=== PATIENT | female | born 1945 | race Caucasian/White ===

== ENCOUNTER 2016-05-25 18:24 | Observation (INO) | payer MEDICARE, OTHER ==
[2016-05-25 19:01] LABS: ABSOLUTE LYMPHOCYTES (AUTO) 1.9 10^3/uL (0.5-4.7); ABSOLUTE MONOCYTES (AUTO) 0.7 10^3/uL (0.1-1.4); ABSOLUTE NEUT (AUTO) 2.9 10^3/uL (1.7-8.2); BASOPHILS % (AUTO) 0.4 % (0-2); EOSINOPHILS % (AUTO) 0.8 % (0-6); HEMATOCRIT 36.1 % (36.0-47.0); HEMOGLOBIN 11.5 g/dL (12.0-15.5); HGB HCT DIFFERENCE -1.6; MEAN CORPUSCULAR HEMOGLOBIN 26.3 pg (27.0-33.4); MEAN CORPUSCULAR HGB CONC 31.8 g/dL (32.0-36.0); MEAN CORPUSCULAR VOLUME 83 fl (80-97); RED BLOOD COUNT 4.37 10^6/uL (3.72-5.28); RED CELL DISTRIBUTION WIDTH 16.2 % (11.5-14.0); SEGMENTED NEUTROPHILS % (AUTO) 51.8 % (42-78); WHITE BLOOD COUNT 5.6 10^3/uL (4.0-10.5)
[2016-05-25 19:15] LABS: ALANINE AMINOTRANSFERASE 23 U/L (9-52); ALBUMIN 3.8 g/dL (3.5-5.0); ALKALINE PHOSPHATASE 71 U/L (38-126); ANION GAP 12 (5-19); ASPARTATE AMINO TRANSFERASE 22 U/L (14-36); BILIRUBIN,DIRECT 0.2 mg/dL (0.0-0.4); BILIRUBIN,TOTAL 0.5 mg/dL (0.2-1.3); BLOOD UREA NITROGEN 14 mg/dL (7-20); CALCIUM 9.5 mg/dL (8.4-10.2); CARBON DIOXIDE 25 mmol/L (22-30); CHLORIDE 101 mmol/L (98-107); CREATININE RESULT 0.66 mg/dL (0.52-1.25); GLUCOSE 75 mg/dL (75-110); LIPASE 119.4 U/L (23-300); POTASSIUM 4.2 mmol/L (3.6-5.0); SODIUM 137.9 mmol/L (137-145); TOTAL PROTEIN 6.2 g/dL (6.3-8.2)
[2016-05-25 19:53] LABS: APPEARANCE,URINE CLEAR; BILIRUBIN,URINE NEGATIVE (NEGATIVE); GLUCOSE, URINE NEGATIVE (NEGATIVE); KETONES,URINE TRACE mg/dL (NEGATIVE); LEUKOCYTE ESTERASE,URINE NEGATIVE (NEGATIVE); NITRITE,URINE NEGATIVE (NEGATIVE); PROTEIN,URINE NEGATIVE (NEGATIVE); URINE SPECIFIC GRAVITY 1.002; UROBILINOGEN,URINE NEGATIVE mg/dL (<2.0)
[2016-05-25] MEDS ORDERED: ONDANSETRON HCL INJ/PF 4 MG/2 ML SDV IV ONE (20:08)
[2016-05-26] MEDS ORDERED: MORPHINE SULFATE 10 MG/ML INJ IV ONE (00:18)
[2016-05-26] MEDS ORDERED: MORPHINE SULFATE 10 MG/ML INJ ONE (00:22)
--- NOTE | 2016-05-26 00:37 | ER Document Report ---
ED General <SADIQ FREEMAN - Last Filed: 05/26/16 04:06> - General Mode of Arrival: Ambulatory Information source: Patient <JACKSON ALLEN - Last Filed: 05/27/16 01:28> - General Chief Complaint: Abdominal Pain >50 Stated Complaint: ABDOMINAL PAIN Notes: This is a 70-year-old female who presents to the ER for evaluation of 2-3 days of intermittent abdominal cramping. She has had nausea but no vomiting. No fevers or chills. No dysuria. She has tolerated crackers and grits today. She states the pain is worse on the left side and reminds her of her prior pancreatitis. (JACKSON ALLEN) - Related Data Allergies/Adverse Reactions: No Known Allergies Allergy (Unverified 05/26/16 01:11) Home Medications: Current Home Medications Acyclovir [Zovirax 200 mg Capsule] 200 mg PO BIDP PRN 05/26/16 [History] Acyclovir [Zovirax 200 mg Capsule] 200 mg PO Q2D@2200 05/26/16 [History] Amitriptyline HCl [Elavil 25 mg Tablet] 12.5 mg PO WSUPPER 05/26/16 [History] Aspirin [Aspirin EC] 81 mg PO DAILY 05/26/16 [History] Azelaic Acid [Finacea] 1 applic TP BIDP PRN 05/26/16 [History] Benzonatate [Tessalon Perle 100 mg Capsule] 100 mg PO DAILYP PRN 05/26/16 [ History] Butalb/Acetaminophen/Caffeine [Zebutal 50-325-40 mg Capsule] 1 cap PO BIDBL 06/08 [History] Calcium Carbonate/Vitamin D3 [Calcium 500 + Vit D Caplet] 2 each PO WSUPPER 06/08 [History] Carboxymethylcellulose Sodium [Refresh Tears] 1 drop OU BID 05/26/16 [History] Chlorhexidine Gluconate [Peridex] 15 ml MM DAILYP PRN 05/26/16 [History] Cholecalciferol (Vitamin D3) [Vitamin D] 50,000 unit PO CANELA@1000 05/26/16 [ History] Ciprofloxacin HCl/Dexameth [Ciprodex Otic Suspension 7.5 ml Bottle] 1 drop AU BID 05/26/16 [History] Cyanocobalamin (Vitamin B-12) [Vitamin B-12 100 mcg Tablet] 100 mcg PO WLUNCH [History] Diclofenac Sodium [Voltaren] 1 applic TP BIDP PRN 05/26/16 [History] Docusate Sodium [Colace 100 mg Capsule] 100 mg PO BID 05/26/16 [History] Emollient Base [Vanicream] 1 applic TP BIDP PRN 05/26/16 [History] Esomeprazole Magnesium [Nexium] 40 mg PO BIDBS 05/26/16 [History] Fluticasone Propionate [Flonase Nasal [place] 50 Mcg/[place] 16 gm] 2 sprays NASL Q12 05/26/16 [History] Folic Acid [Folvite 1 mg Tablet] 1 mg PO DAILY 05/26/16 [History] Gabapentin [Neurontin 300 mg Capsule] 300 mg PO QPM 05/26/16 [History] Gabapentin [Neurontin] 600 mg PO Q8 05/26/16 [History] Hydrocodone/Acetaminophen [[place] 7.5-325 mg Tablet] 1 tab PO DAILYP PRN [History] Magnesium Oxide [Mag-Ox 400 mg Tablet] 400 mg PO DAILY 05/26/16 [History] Meclizine HCl [Antivert 25 mg Tablet] 25 mg PO Q6HP PRN 05/26/16 [History] Methocarbamol [Robaxin 750 mg Tablet] 750 mg PO QHS 05/26/16 [History] Metoclopramide HCl [Reglan] 2.5 mg PO Q2D@2200 05/26/16 [History] Montelukast Sodium [Singulair 10 mg Tablet] 10 mg PO QHS 05/26/16 [History] Nitroglycerin [Nitrostat] 0.4 mg SL Q5MP PRN 05/26/16 [History] [place]-3/Dha/Epa/Fish Oil [Fish Oil 1,000 mg Softgel] 1 each PO QHS 05/26/16 [ History] Ondansetron HCl [Zofran 8 mg Tablet] 4 mg PO Q6HP PRN 05/26/16 [History] Potassium Chloride [Klor-Con 10 Meq Tablet.sa] 20 meq PO DAILY 05/26/16 [History ] Pravastatin Sodium [Pravachol] 20 mg PO QHS 05/26/16 [History] Prednisone 4 mg PO WSUPPER 05/26/16 [History] Prednisone 5 mg PO WLUNCH 05/26/16 [History] Prednisone 10 mg PO QAM 05/26/16 [History] Promethazine HCl [Phenergan 25 mg Tablet] 25 mg PO Q6HP PRN 05/26/16 [History] Pyridoxine HCl [Vitamin B-6 Tablet 50 mg] 25 mg PO DAILY 05/26/16 [History] Sodium Chloride [Anne-128 Oph Soln 5% 15 ml] 1 drop OU BID 05/26/16 [History] Tramadol HCl [Ultram 50 mg Tablet] 50 mg PO Q6 05/26/16 [History] Vitamin B Complex [B Complex] 1 each PO WLUNCH 05/26/16 [History] Vitamin E (Dl, Acetate) [Vitamin E 400 Unit Capsule] 400 unit PO Q2D@2200 [History] Zinc 50 mg PO WSUPPER 05/26/16 [History] Past Medical History - General Information source: Patient, [facility] - Social History Smoking Status: Unknown if Ever Smoked Family History: Reviewed & Not Pertinent - Past Medical History Cardiac Medical History: Reports: Hx Hypercholesterolemia, Hx Hypertension Pulmonary Medical History: Reports: Other - Sarcoidosis Endocrine Medical History: Reports: Hx Diabetes Mellitus Type 2 GI Medical History: Reports: Hx Gastroesophageal Reflux Disease Musculoskeltal Medical History: Reports Hx Arthritis, Reports Hx Fibromyalgia Past Surgical History: Reports: Hx Bowel Surgery, Hx Orthopedic Surgery - back <JACKSON ALLEN - Last Filed: 05/27/16 01:28> Review of Systems <SADIQ FREEMAN - Last Filed: 05/26/16 04:06> <JACKSON ALLEN - Last Filed: 05/27/16 01:28> - Review of Systems Notes: REVIEW OF SYSTEMS: CONSTITUTIONAL : Denies fever, chills, or sweats. Denies recent illness. EENT: Denies eye, ear, throat, or mouth pain or symptoms. Denies nasal or sinus congestion. CARDIOVASCULAR: Denies chest pain. RESPIRATORY: Denies cough, cold, or chest congestion. Denies shortness of breath, difficulty breathing, or wheezing. GASTROINTESTINAL: As per history of present illness: GENITOURINARY: Denies difficulty urinating, painful urination, burning, frequency, or blood in urine. MUSCULOSKELETAL: Denies neck or back pain or joint pain or swelling. SKIN: Denies rash or skin lesions. HEMATOLOGIC : Denies easy bruising or bleeding. LYMPHATIC: Denies swollen, enlarged glands. NEUROLOGICAL: Denies altered mental status or loss of consciousness. Denies headache. PSYCHIATRIC: Denies anxiety or stress or depression. ALL OTHER SYSTEMS REVIEWED AND NEGATIVE. (JACKSON ALLEN) Physical Exam <SADIQ FREEMAN - Last Filed: 05/26/16 04:06> <JACKSON ALLEN - Last Filed: 05/27/16 01:28> - Vital signs Vitals: Temp Pulse Resp BP Pulse Ox 98.1 F 63 16 136/60 H 96 05/25/16 18:45 05/25/16 18:45 05/25/16 18:45 05/25/16 18:45 05/25/16 18:45 - Notes Notes: PHYSICAL EXAMINATION: GENERAL: Well-appearing, well-nourished and in no acute distress. Pleasant and conversant with slightly anxious affect HEAD: Atraumatic, normocephalic. EYES: Pupils equal round and reactive to light, extraocular movements intact, sclera anicteric, conjunctiva are normal. ENT: nares patent, oropharynx clear without exudates. Moist mucous membranes. NECK: Normal range of motion, supple without lymphadenopathy LUNGS: Breath sounds clear to auscultation bilaterally and equal. No wheezes rales or rhonchi. HEART: Regular rate and rhythm without murmurs ABDOMEN: Soft, mild lower abdominal tenderness to palpation without peritonitis, , normoactive bowel sounds. Left lower quadrant colostomy is intact. No guarding, no rebound. No masses appreciated. EXTREMITIES: Normal range of motion, no pitting or edema. No cyanosis. NEUROLOGICAL: Cranial nerves grossly intact. Normal speech. No gross focal motor sensory deficits appreciated PSYCH: Normal mood, anxious affect SKIN: Warm, Dry, normal turgor, no rashes or lesions noted. (JACKSON ALLEN) Course - Laboratory Result Diagrams: 05/25/16 18:42 05/25/16 18:42 <SADIQ FREEMAN - Last Filed: 05/26/16 04:06> - Laboratory Result Diagrams: 05/25/16 18:42 05/25/16 18:42 - Diagnostic Test Radiology reviewed: Reports reviewed - CT abd/pelvis: no acute process <JACKSON ALLEN - Last Filed: 05/27/16 01:28> - Re-evaluation Re-evalutation: 05/26/16 00:36 Patient with continued benign abdominal exam. No peritonitis and no evidence of surgical abdomen. Labs reviewed and are reassuring. CT of the abdomen and pelvis with IV contrast shows no acute abnormality. Patient is appropriate for discharge and outpatient management. She will follow up closely with her primary care physician. Strict return precautions were discussed and she is comfortable with this plan. 05/26/16 01:53 Of note, pt was in process of discharge and was feeling well. When she stood to put her pants on, she states she had a very sharp pain in her mid back all of a sudden. No shortness of breath, no nausea, no diaphoresis. At times in the past when she has had this sharp back pain, she would take a ntg given the fact that she has been diagnosed with prinzemetals spasms. So, without notifying nursing staff, she took one of her SL NTG. She then felt dizzy and nauseated and had to lay down Patient had good response her blood pressure with lying down liter of IV fluids. She states that she feels fine and she really wants to go home. I believe her hypotension was secondary to the nitroglycerin. She is having no chest pain or shortness of breath now. She'll be discharged. Upon nursing assessment discharge it was noted the patient's room air sats have dropped to the high 60s to low 70s with a good waveform. Patient is awake and talking however she appears somewhat sleepy. Her respirations are slow at 8. She adamantly denies taking any medication other than the nitroglycerin specifically she denies taking any pain medications however her clinical presentation suggests possible opiates. A dose of Narcan was given to which she initially had good response. However 20 minutes later she had a second episode of descending to 83% on room air. Cardiac enzymes as well as urine drug screen and chest x-ray have been ordered. I discussed the case with the hospitalist Dr. Gonzalez for admission for continued workup and chest pain rule out. At this time Dr. Gonzalez recommends CT angiogram or VQ scan and ABG prior to consideration for admission. At 0245 care was transferred to Dr. Freeman with anticipation of admission to hospitalist for VQ scan. (JACKSON ALLEN) - Vital Signs Vital signs: Temp Pulse Resp BP Pulse Ox 99.4 F 82 19 162/87 H 93 05/26/16 20:44 05/26/16 20:44 05/26/16 20:44 05/26/16 20:44 05/26/16 20:44 - Laboratory Laboratory results interpreted by me: 05/25/16 05/25/16 05/25/16 17:36 18:42 18:42 Hgb 11.5 L MCH 26.3 L MCHC 31.8 L RDW 16.2 H ABG pO2 ABG O2 Saturation Total Protein 6.2 L Urine Ketones TRACE H 05/26/16 03:30 Hgb MCH MCHC RDW ABG pO2 68.6 L ABG O2 Saturation 93.7 L Total Protein Urine Ketones Discharge - Discharge Admitting Provider: Hospitalist Unit Admitted: Telemetry <SADIQ FREEMAN - Last Filed: 05/26/16 04:06> - Discharge Admitting Provider: Hospitalist Unit Admitted: Telemetry - Dr Gonzalez <JACKSON ALLEN - Last Filed: 05/27/16 01:28> - Discharge Clinical Impression: Abdominal pain in female patient, Hypoxia Chest pain Qualifiers: Chest pain type: unspecified Qualified Code(s): R07.9 - Chest pain, unspecified Condition: Stable Disposition: ADMITTED OBSERVATION
[2016-05-26] MEDS ORDERED: NORMAL SALINE 1000 ML 1,000 ML IV ONE ×2 (01:11→01:12)
[2016-05-26] MEDS ORDERED: NALOXONE HCL INJ/PF 0.4 MG/1 ML SDV IV ONE (02:11)
[2016-05-26 03:12] LABS: CREATINE KINASE MB 0.65 ng/mL (<4.55)
[2016-05-26 03:16] LABS: URINE BARBITURATES SCREEN UNCONFIRMED POSITIVE; URINE METHADONE SCREEN NEGATIVE; URINE OPIATES LOW UNCONFIRMED POSITIVE; URINE PHENCYCLIDINE SCREEN NEGATIVE
[2016-05-26 03:16] LABS: TROPONIN I < 0.012 ng/mL
[2016-05-26] MEDS ORDERED: ONDANSETRON HCL INJ/PF 4 MG/2 ML SDV IV ONE (03:42)
[2016-05-26 04:02] LABS: ARTERIAL BLOOD BASE EXCESS -2.9 mmol/L; ARTERIAL BLOOD O2 SATURATION 93.7 % (94-98)
[2016-05-26] MEDS ORDERED: CALCIUM CARBONATE 500 MG TABLET PO PRN (06:28)
--- NOTE | 2016-05-26 07:12 | ER Document Report ---
Doctor's Note Notes: 05/26/16 07:11 Asked to review an EKG. Patient sinus rhythm at [address] bpm [address] no acute ST segment elevation or depression
[2016-05-26 07:49] LABS: CREATINE KINASE MB 0.96 ng/mL (<4.55); TROPONIN I < 0.012 ng/mL
[2016-05-26] MEDS ORDERED: DIPHENHYDRAMINE HCL 50 MG/ML VIAL IV PRN (09:24)
--- NOTE | 2016-05-26 10:06 | Physician Advisory Note ---
Physician Advisor ProgressNote .: [facility] I have reviewed the medical record for this patient. Physician Advisor Statement: Possible documentation opportunities if attending agrees: 1. "Acute Hypoxemic Resp Failure w/bradypnea as low as 4/sedation & hypoxemia as low as 70% on RA" 2. ? - "Chronic nutritional Fe defic anemia" - or chronic blood loss type? or ... 3. ?- "possible adverse effect of ____ [Rx] causing " As always, if concerned about any unstable VS or abnormal labs, please comment on them & note what doing about them, & please document each day the potential clinical problems you are concerned could occur if pt not kept in hospital for tx at this time. Discussion: 70yo female w/ chronic co-morbidities including DM-2, HTN, pancreatitis, sarcoidosis, fibromyalgia, chronic back pain, Printzmetal's angina, LLQ colostomy due to (H&P is in progress at time of this review, so further details may be found there) - presented 4/3 PM to ED w/LUQ cramping pain & nausea (+) HR 63, RR 16, BP 136/60, Hgb 11.5, RDW 16.2, WBC WNL, CT=no acute findings, U/A = tr ket, Then sudden sharp pain mid-back & took own pill for it ("SL NTG"), became dizzy/ nauseated, BP 75/46, then sleepy w/RR8, sats 60s-70s on RA, with recurrent hypoxemia to 83% RA 20min after Narcan. ED gave morphine 2mg at 00:22, Narcan @ 02:11, 2L NS. UDS (+) opiates, barbit. RR as low as 4, freq.ly 8-11 over several hrs in association w/low sats. V/Q neg. CXR neg. Attending ordered Solumedrol IV q8h, Benadryl IV prn, Zofran IV prn, orthostatics, GI consult, serial cardiac enzymes, EKG. Status: Approp to start as Obs. If pt doesn't improve by tomorrow AM enough to be stable for d/c, please document ongoing concerns/clinical issues making tx/ monitoring in inpatient hospital setting medically reasonable & necessary to protect pt's health, safety, & medical condition. Thanks for your help with documentation accuracy/specificity improvement! Marilee Champion MD [facility] Physician Advisor, Fellow of [facility]
[2016-05-26] MEDS ORDERED: NORMAL SALINE 1000 ML 1,000 ML IV PRN (10:36)
[2016-05-26] MEDS: ONDANSETRON HCL INJ/PF 4 MG/2 ML SDV IV PRN ×2 (10:40→18:03)
[2016-05-26] MEDS ORDERED: MORPHINE SULFATE 10 MG/ML INJ IV PRN (11:08)
[2016-05-26] MEDS: CALCIUM CARBONATE 500 MG TAB.CHEW PO SCH ×4 (11:13→22:17)
[2016-05-26] MEDS ORDERED: METHYLPREDNISOLONE INJ 40 MG/1 ML SDV IV ONE (11:15)
[2016-05-26] MEDS: PROMETHAZINE HCL 25 MG SUPP.RECT PR PRN ×2 (12:01→18:17)
--- NOTE | 2016-05-26 13:12 | EKG REPORT ---
SEVERITY:- ABNORMAL ECG - SINUS RHYTHM LEFT VENTRICULAR HYPERTROPHY : Confirmed by: Carmen Powell MD 26-May-2016 13:12:31
--- NOTE | 2016-05-26 13:13 | EKG REPORT ---
SEVERITY:- ABNORMAL ECG - SINUS RHYTHM LEFT VENTRICULAR HYPERTROPHY : Confirmed by: Carmen Powell MD 26-May-2016 13:12:37
--- NOTE | 2016-05-26 13:36 | PDOC PROGRESS REPORT ---
Subjective Progress Note for:: 05/26/16 Subjective:: Complains of left upper quadrant abdominal pain. Patient also has had nausea and vomiting. Physical Exam Vital Signs: Temp Pulse Resp BP Pulse Ox 97.4 F 80 20 142/85 H 99 05/26/16 11:46 05/26/16 11:46 05/26/16 11:46 05/26/16 11:46 05/26/16 11:46 General appearance: PRESENT: no acute distress Eye exam: PRESENT: conjunctiva pink. ABSENT: scleral icterus Mouth exam: PRESENT: dry mucosa Neck exam: ABSENT: JVD Respiratory exam: PRESENT: clear to auscultation jose. ABSENT: rales, rhonchi, wheezes Cardiovascular exam: PRESENT: RRR. ABSENT: diastolic murmur, rubs, systolic murmur GI/Abdominal exam: PRESENT: normal bowel sounds, soft, tenderness - Left quadrant tenderness. No guarding or rebound., other - Colostomy in place. ABSENT: distended, guarding, mass, organolmegaly, rebound Extremities exam: ABSENT: calf tenderness, clubbing, pedal edema Neurological exam: PRESENT: alert, awake, oriented to person, oriented to place , oriented to time, oriented to situation, CN II-XII grossly intact. ABSENT: motor sensory deficit Psychiatric exam: PRESENT: appropriate affect Skin exam: PRESENT: dry, intact, warm. ABSENT: cyanosis, rash Results Impressions: Abdomen/Pelvis CT 05/25/16 19:54 IMPRESSION: No acute process. Left lower quadrant ostomy. Small ventral hernia containing nonobstructed bowel. Chest X-Ray 05/26/16 02:11 IMPRESSION: NO ACUTE RADIOGRAPHIC FINDING IN THE CHEST. Extensive calcified nodes. Lung Scan-VQ ND 05/26/16 02:41 IMPRESSION: NORMAL VENTILATION-PERFUSION LUNG SCAN. NEGATIVE FOR PULMONARY EMBOLI. Assessment & Plan - Diagnosis (1) Abdominal pain in female patient Is this a current diagnosis for this admission?: YesPlan: The cause of her abdominal pain is unclear. She has a history of pancreatitis as well as a history of diverticulitis. Her lipase is normal and does not have pancreatitis. We'll consult GI for evaluation. (2) Diabetes mellitus Is this a current diagnosis for this admission?: YesPlan: We'll cover with sliding scale insulin. (3) Fibromyalgia Is this a current diagnosis for this admission?: Yes (4) Prinzmetal's angina Is this a current diagnosis for this admission?: YesPlan: The patient took a nitroglycerin in the emergency room because of chest pain and became hypotensive. (5) Hyperlipidemia Is this a current diagnosis for this admission?: Yes (6) Sarcoidosis Is this a current diagnosis for this admission?: Yes (7) Hypertension Is this a current diagnosis for this admission?: Yes (8) Chest pain Qualifiers: Chest pain type: unspecified Qualified Code(s): R07.9 - Chest pain, unspecified Is this a current diagnosis for this admission?: YesPlan: Most likely secondary to Prinzmetal's angina. She is followed by [facility] cardiology, Dr. Matos (9) Hypoxia Is this a current diagnosis for this admission?: YesPlan: The etiology of the hypoxia is unclear. She had this after she took a nitroglycerin and became hypotensive. She's no longer hypoxic and her VQ scan was unremarkable. - Time Time Spent with patient: 35 or more minutes - Inpatient Certification Medical Necessity: Need Close Monitoring Due to Risk of Patient Decompensation
[2016-05-26] MEDS ORDERED: BENZONATATE 100 MG CAPSULE PO PRN (13:37)
[2016-05-26] MEDS ORDERED: PYRIDOXINE HCL 50 MG TABLET PO PRN (13:37)
[2016-05-26 13:56] LABS: CREATINE KINASE MB 1.3 ng/mL (<4.55); TROPONIN I 0.014 ng/mL
[2016-05-26] MEDS: LORAZEPAM INJ 2 MG/1 ML VIAL IV PRN ×2 (14:18→22:12)
[2016-05-26] MEDS: DEXTROSE 5%-1/2 NORMAL SALINE 1,000 ML IV PRN ×2 (15:23→22:15)
[2016-05-26] MEDS ORDERED: PROMETHAZINE HCL INJ 25 MG/1 ML VIAL ONE (15:39)
[2016-05-26] MEDS ORDERED: MIDAZOLAM 2 MG/2 ML INJ ONE (15:39)
[2016-05-26] MEDS ORDERED: NALOXONE HCL INJ/PF 0.4 MG/1 ML SDV ONE (15:39)
[2016-05-26] MEDS ORDERED: GLUCAGON,HUMAN RECOMB 1 MG INJ ONE (15:40)
[2016-05-26] MEDS ORDERED: FENTANYL CITRATE INJ/PF 100 MCG/2 ML AMPUL ONE (15:40)
[2016-05-26] MEDS ORDERED: FLUMAZENIL INJ 0.5 MG/5 ML VIAL IV ONE (15:40)
[2016-05-26] MEDS ORDERED: EPINEPHRINE INJ 1 MG/10 ML DISP.SYRIN ONE (15:40)
--- NOTE | 2016-05-26 16:21 | PDOC H&P ---
History of Present Illness Admission Date/PCP: 05/26/16 10:25 Patient complains of: Abdominal pain History of Present Illness: CHUY SYKES is a 70 year old female who has a history of pancreatitis thought to be secondary to metformin who presented with left upper quadrant abdominal pain. She presented to the emergency room and her lipase was normal. She was going to be discharged home but then began to have some chest discomfort for which she took a nitroglycerin and then she became hypotensive. Patient after that then developed some hypoxia. She was given Narcan and normalization of her saturations as well as her blood pressure. Because of the chest discomfort she underwent a VQ scan which was normal. The patient has a history of Prinzmetal angina by her report. The patient reports that her pain in the left upper quadrant does not radiate. She's had difficulty tolerating by mouth for the last 2 days. She does use prednisone chronically and has not had her dose either today or yesterday. Denies any hematemesis. Denies any melena or bright red blood per rectum. Past Medical History Cardiac Medical History: Reports: Hyperlipidema, Hypertension Pulmonary Medical History: Reports: Other - Sarcoidosis Endocrine Medical History: Reports: Diabetes Mellitus Type 2 GI Medical History: Reports: Diverticulitis - Requiring partial colectomy, Gastroesophageal Reflux Disease Musculoskeltal Medical History: Reports: Arthritis, Fibromyalgia Psychiatric Medical History: Denies: Depression - MED FOR FIBROMYALGIA Hematology: Reports: None Past Surgical History Past Surgical History: Reports: Colostomy - Secondary to ruptured diverticulum, Orthopedic Surgery - back Social History Information Source: Patient Smoking Status: Never Smoker Frequency of Alcohol Use: None Hx Recreational Drug Use: Yes Drugs: None Hx Prescription Drug Abuse: No - Advance Directive Resuscitation Status: Full Code Family History Family History: Mother at age 82. She had diabetes, coronary artery disease, CVA and cancer. Father at age 84 with MS Parental Family History Reviewed: Yes Children Family History Reviewed: No Sibling(s) Family History Reviewed.: No Medication/Allergy Home Medications: Acyclovir [Zovirax 200 mg Capsule] 200 mg PO BIDP PRN 05/26/16 Acyclovir [Zovirax 200 mg Capsule] 200 mg PO Q2D@2200 05/26/16 Amitriptyline HCl [Elavil 25 mg Tablet] 12.5 mg PO WSUPPER 05/26/16 Aspirin [Aspirin EC] 81 mg PO DAILY 05/26/16 Azelaic Acid [Finacea] 1 applic TP BIDP PRN 05/26/16 Benzonatate [Tessalon Perle 100 mg Capsule] 100 mg PO DAILYP PRN 05/26/16 Butalb/Acetaminophen/Caffeine [Zebutal 50-325-40 mg Capsule] 1 cap PO BIDBL 06/08 Calcium Carbonate/Vitamin D3 [Calcium 500 + Vit D Caplet] 2 each PO WSUPPER 06/08 Carboxymethylcellulose Sodium [Refresh Tears] 1 drop OU BID 05/26/16 Chlorhexidine Gluconate [Peridex] 15 ml MM DAILYP PRN 05/26/16 Cholecalciferol (Vitamin D3) [Vitamin D] 50,000 unit PO CANELA@1000 05/26/16 Ciprofloxacin HCl/Dexameth [Ciprodex Otic Suspension 7.5 ml Bottle] 1 drop AU BID 05/26/16 Cyanocobalamin (Vitamin B-12) [Vitamin B-12 100 mcg Tablet] 100 mcg PO WLUNCH Diclofenac Sodium [Voltaren] 1 applic TP BIDP PRN 05/26/16 Docusate Sodium [Colace 100 mg Capsule] 100 mg PO BID 05/26/16 Emollient Base [Vanicream] 1 applic TP BIDP PRN 05/26/16 Esomeprazole Magnesium [Nexium] 40 mg PO BIDBS 05/26/16 Fluticasone Propionate [Flonase Nasal [place] 50 Mcg/[place] 16 gm] 2 sprays NASL Q12 05/26/16 Folic Acid [Folvite 1 mg Tablet] 1 mg PO DAILY 05/26/16 Gabapentin [Neurontin 300 mg Capsule] 300 mg PO QPM 05/26/16 Gabapentin [Neurontin] 600 mg PO Q8 05/26/16 Hydrocodone/Acetaminophen [[place] 7.5-325 mg Tablet] 1 tab PO DAILYP PRN Magnesium Oxide [Mag-Ox 400 mg Tablet] 400 mg PO DAILY 05/26/16 Meclizine HCl [Antivert 25 mg Tablet] 25 mg PO Q6HP PRN 05/26/16 Methocarbamol [Robaxin 750 mg Tablet] 750 mg PO QHS 05/26/16 Metoclopramide HCl [Reglan] 2.5 mg PO Q2D@2200 05/26/16 Montelukast Sodium [Singulair 10 mg Tablet] 10 mg PO QHS 05/26/16 Nitroglycerin [Nitrostat] 0.4 mg SL Q5MP PRN 05/26/16 [place]-3/Dha/Epa/Fish Oil [Fish Oil 1,000 mg Softgel] 1 each PO QHS 05/26/16 Ondansetron HCl [Zofran 8 mg Tablet] 4 mg PO Q6HP PRN 05/26/16 Potassium Chloride [Klor-Con 10 Meq Tablet.sa] 20 meq PO DAILY 05/26/16 Pravastatin Sodium [Pravachol] 20 mg PO QHS 05/26/16 Prednisone 4 mg PO WSUPPER 05/26/16 Prednisone 5 mg PO WLUNCH 05/26/16 Prednisone 10 mg PO QAM 05/26/16 Promethazine HCl [Phenergan 25 mg Tablet] 25 mg PO Q6HP PRN 05/26/16 Pyridoxine HCl [Vitamin B-6 Tablet 50 mg] 25 mg PO DAILY 05/26/16 Sodium Chloride [Anne-128 Oph Soln 5% 15 ml] 1 drop OU BID 05/26/16 Tramadol HCl [Ultram 50 mg Tablet] 50 mg PO Q6 05/26/16 Vitamin B Complex [B Complex] 1 each PO WLUNCH 05/26/16 Vitamin E (Dl, Acetate) [Vitamin E 400 Unit Capsule] 400 unit PO Q2D@2200 Zinc 50 mg PO WSUPPER 05/26/16 Allergies/Adverse Reactions: No Known Allergies Allergy (Unverified 05/26/16 01:11) Review of Systems Constitutional: PRESENT: chills. ABSENT: night sweats Eyes: ABSENT: visual disturbances Ears: ABSENT: hearing changes Cardiovascular: PRESENT: chest pain - Emergency room. She has a history of Prinzmetal angina. She took nitroglycerin with relief.. ABSENT: dyspnea on exertion, edema, orthropnea, palpitations Respiratory: ABSENT: cough, dyspnea Gastrointestinal: PRESENT: as per HPI Genitourinary: ABSENT: dysuria, hematuria Musculoskeletal: PRESENT: other - Generalized pain secondary to fibromyalgia Integumentary: ABSENT: rash, wounds Neurological: ABSENT: abnormal gait, abnormal speech, confusion, dizziness, focal weakness, syncope Endocrine: ABSENT: cold intolerance, heat intolerance, polydipsia, polyuria Hematologic/Lymphatic: ABSENT: easy bleeding, easy bruising Physical Exam Vital Signs: Temp Pulse Resp BP Pulse Ox 97.4 F 80 20 142/85 H 99 05/26/16 11:46 05/26/16 11:46 05/26/16 11:46 05/26/16 11:46 05/26/16 11:46 General appearance: PRESENT: no acute distress, well-developed, well-nourished Head exam: PRESENT: atraumatic, normocephalic Eye exam: PRESENT: conjunctiva pink, EOMI, PERRLA. ABSENT: scleral icterus Mouth exam: PRESENT: dry mucosa Neck exam: ABSENT: carotid bruit, JVD, lymphadenopathy, thyromegaly Respiratory exam: PRESENT: clear to auscultation jose. ABSENT: rales, rhonchi, wheezes Cardiovascular exam: PRESENT: RRR. ABSENT: diastolic murmur, rubs, systolic murmur GI/Abdominal exam: PRESENT: normal bowel sounds, soft, tenderness - Left upper quadrant tenderness. Colostomy present in the lower abdomen. ABSENT: distended , guarding, mass, organolmegaly, rebound Extremities exam: ABSENT: calf tenderness, clubbing, pedal edema Neurological exam: PRESENT: alert, awake, oriented to person, oriented to place , oriented to time, oriented to situation, CN II-XII grossly intact. ABSENT: motor sensory deficit Psychiatric exam: PRESENT: anxious Skin exam: PRESENT: dry, intact, warm. ABSENT: cyanosis, rash Results Laboratory Results: 05/26/16 05/26/16 13:14 13:14 Creatine Kinase 81 CK-MB (CK-2) 1.30 Troponin I 0.014 Impressions: Abdomen/Pelvis CT 05/25/16 19:54 IMPRESSION: No acute process. Left lower quadrant ostomy. Small ventral hernia containing nonobstructed bowel. Chest X-Ray 05/26/16 02:11 IMPRESSION: NO ACUTE RADIOGRAPHIC FINDING IN THE CHEST. Extensive calcified nodes. Lung Scan-VQ NM 05/26/16 02:41 IMPRESSION: NORMAL VENTILATION-PERFUSION LUNG SCAN. NEGATIVE FOR PULMONARY EMBOLI. Assessment & Plan - Diagnosis (1) Abdominal pain in female patient Is this a current diagnosis for this admission?: YesPlan: The cause of her abdominal pain is unclear. She has a history of pancreatitis as well as a history of diverticulitis. Her lipase is normal and does not have pancreatitis. We'll consult GI for evaluation. (2) Diabetes mellitus Is this a current diagnosis for this admission?: YesPlan: We'll cover with sliding scale insulin. (3) Fibromyalgia Is this a current diagnosis for this admission?: Yes (4) Prinzmetal's angina Is this a current diagnosis for this admission?: YesPlan: The patient took a nitroglycerin in the emergency room because of chest pain and became hypotensive. (5) Hyperlipidemia Is this a current diagnosis for this admission?: Yes (6) Sarcoidosis Is this a current diagnosis for this admission?: YesPlan: Patient has been on prednisone daily. I have assured the patient that she would benefit from Solu-Medrol given that she did not have a dose of prednisone yesterday or today but she does not want to take it. (7) Hypertension Is this a current diagnosis for this admission?: YesPlan: The patient's blood pressure dropped low in the emergency room after nitroglycerin but improved after getting some Narcan. Patient will give IV fluids (8) Chest pain Qualifiers: Chest pain type: unspecified Qualified Code(s): R07.9 - Chest pain, unspecified Is this a current diagnosis for this admission?: YesPlan: Unclear whether this is related to her Prinzmetal angina or this could be referred from her abdomen. (9) Hypoxia Is this a current diagnosis for this admission?: YesPlan: The etiology of the hypoxia is unclear. She had this after she took a nitroglycerin and became hypotensive. She's no longer hypoxic and her VQ scan was unremarkable. - Time Time Spent: 50 to 70 Minutes - Plan Summary Plan Summary: Patient will be admitted as an observation.
[2016-05-26] MEDS ORDERED: AMITRIPTYLINE HCL 25 MG TABLET PO SCH (17:00)
[2016-05-26] MEDS ORDERED: EMOLLIENT BASE TP PRN (17:26)
[2016-05-26] MEDS ORDERED: HYDROCODONE/ACETAMINOPHEN 7.5-325 MG TABLET PO PRN (17:26)
[2016-05-26] MEDS ORDERED: (PENDING PHARMACY ID) (Diclofenac Sodium [Voltaren] 1 APPLIC) TP PRN (17:26)
[2016-05-26] MEDS ORDERED: AZELAIC ACID TP PRN (17:26)
[2016-05-26] MEDS ORDERED: ONDANSETRON HCL 8 MG TABLET PO PRN (17:26)
[2016-05-26] MEDS: METHYLPREDNISOLONE INJ 40 MG/1 ML SDV IV SCH ×2 (17:58→22:17)
[2016-05-26] MEDS ORDERED: (PENDING PHARMACY ID) (Carboxymethylcellulose Sodium [Refresh Tears] 1 DROP) OU SCH (18:00)
[2016-05-26] MEDS ORDERED: ONDANSETRON 4 MG TAB.RAPDIS PO PRN (19:04)
--- NOTE | 2016-05-26 19:12 | PDOC CONSULTATION ---
Consultation Consult Date: 05/26/16 History of Present Illness Admission Date/PCP: 05/26/16 10:25 History of Present Illness: This is a 70-year-old patient who was presented to the emergency room yesterday with left upper abdominal pain. The pain started about three days ago and we will common go. It was not related to food and she did not have any nausea or vomiting until she came to the emergency room. She thought she might have recurrent pancreatitis. Her lipase and CAT scan were normal in the emergency room. While getting ready for discharge from the emergency room she developed some chest discomfort for nausea and vomiting. Her EKG and VQ scan was unremarkable. It was felt the nausea and vomiting was a side effect of the morphine she received. Patient has multiple medical problems and had seen GIs in the past. She takes Reglan for gastroparesis in addition to Nexium. She has had EGD and colonoscopies in the past. She does get nausea off and on. Past Medical History Cardiac Medical History: Reports: Hyperlipidema, Hypertension Pulmonary Medical History: Reports: Other - Sarcoidosis Endocrine Medical History: Reports: Diabetes Mellitus Type 2 GI Medical History: Reports: Diverticulitis - Requiring partial colectomy, Gastroesophageal Reflux Disease Musculoskeltal Medical History: Reports: Arthritis, Fibromyalgia Psychiatric Medical History: Denies: Depression - MED FOR FIBROMYALGIA Hematology: Reports: None Past Surgical History Past Surgical History: Reports: Colostomy - Secondary to ruptured diverticulum, Orthopedic Surgery - back Social History Smoking Status: Never Smoker Frequency of Alcohol Use: None Hx Recreational Drug Use: Yes Drugs: None Hx Prescription Drug Abuse: No - Advance Directive Resuscitation Status: Full Code Family History Parental Family History Reviewed: No Children Family History Reviewed: NA Sibling(s) Family History Reviewed.: NA Medication/Allergy Home Medications: Acyclovir [Zovirax 200 mg Capsule] 200 mg PO BIDP PRN 05/26/16 Acyclovir [Zovirax 200 mg Capsule] 200 mg PO Q2D@2200 05/26/16 Amitriptyline HCl [Elavil 25 mg Tablet] 12.5 mg PO WSUPPER 05/26/16 Aspirin [Aspirin EC] 81 mg PO DAILY 05/26/16 Azelaic Acid [Finacea] 1 applic TP BIDP PRN 05/26/16 Benzonatate [Tessalon Perle 100 mg Capsule] 100 mg PO DAILYP PRN 05/26/16 Butalb/Acetaminophen/Caffeine [Zebutal 50-325-40 mg Capsule] 1 cap PO BIDBL 06/08 Calcium Carbonate/Vitamin D3 [Calcium 500 + Vit D Caplet] 2 each PO WSUPPER 06/08 Carboxymethylcellulose Sodium [Refresh Tears] 1 drop OU BID 05/26/16 Chlorhexidine Gluconate [Peridex] 15 ml MM DAILYP PRN 05/26/16 Cholecalciferol (Vitamin D3) [Vitamin D] 50,000 unit PO CANELA@1000 05/26/16 Ciprofloxacin HCl/Dexameth [Ciprodex Otic Suspension 7.5 ml Bottle] 1 drop AU BID 05/26/16 Cyanocobalamin (Vitamin B-12) [Vitamin B-12 100 mcg Tablet] 100 mcg PO WLUNCH Diclofenac Sodium [Voltaren] 1 applic TP BIDP PRN 05/26/16 Docusate Sodium [Colace 100 mg Capsule] 100 mg PO BID 05/26/16 Emollient Base [Vanicream] 1 applic TP BIDP PRN 05/26/16 Esomeprazole Magnesium [Nexium] 40 mg PO BIDBS 05/26/16 Fluticasone Propionate [Flonase Nasal [place] 50 Mcg/[place] 16 gm] 2 sprays NASL Q12 05/26/16 Folic Acid [Folvite 1 mg Tablet] 1 mg PO DAILY 05/26/16 Gabapentin [Neurontin 300 mg Capsule] 300 mg PO QPM 05/26/16 Gabapentin [Neurontin] 600 mg PO Q8 05/26/16 Hydrocodone/Acetaminophen [[place] 7.5-325 mg Tablet] 1 tab PO DAILYP PRN Magnesium Oxide [Mag-Ox 400 mg Tablet] 400 mg PO DAILY 05/26/16 Meclizine HCl [Antivert 25 mg Tablet] 25 mg PO Q6HP PRN 05/26/16 Methocarbamol [Robaxin 750 mg Tablet] 750 mg PO QHS 05/26/16 Metoclopramide HCl [Reglan] 2.5 mg PO Q2D@2200 05/26/16 Montelukast Sodium [Singulair 10 mg Tablet] 10 mg PO QHS 05/26/16 Nitroglycerin [Nitrostat] 0.4 mg SL Q5MP PRN 05/26/16 [place]-3/Dha/Epa/Fish Oil [Fish Oil 1,000 mg Softgel] 1 each PO QHS 05/26/16 Ondansetron HCl [Zofran 8 mg Tablet] 4 mg PO Q6HP PRN 05/26/16 Potassium Chloride [Klor-Con 10 Meq Tablet.sa] 20 meq PO DAILY 05/26/16 Pravastatin Sodium [Pravachol] 20 mg PO QHS 05/26/16 Prednisone 4 mg PO WSUPPER 05/26/16 Prednisone 5 mg PO WLUNCH 05/26/16 Prednisone 10 mg PO QAM 05/26/16 Promethazine HCl [Phenergan 25 mg Tablet] 25 mg PO Q6HP PRN 05/26/16 Pyridoxine HCl [Vitamin B-6 Tablet 50 mg] 25 mg PO DAILY 05/26/16 Sodium Chloride [[place]-128 Oph Soln 5% 15 ml] 1 drop OU BID 05/26/16 Tramadol HCl [Ultram 50 mg Tablet] 50 mg PO Q6 05/26/16 Vitamin B Complex [B Complex] 1 each PO WLUNCH 05/26/16 Vitamin E (Dl, Acetate) [Vitamin E 400 Unit Capsule] 400 unit PO Q2D@2200 Zinc 50 mg PO WSUPPER 05/26/16 Allergies/Adverse Reactions: No Known Allergies Allergy (Unverified 05/26/16 01:11) Review of Systems All systems: reviewed and no additional remarkable complaints except as stated Physical Exam Vital Signs: Temp Pulse Resp BP Pulse Ox 97.4 F 80 20 142/85 H 99 05/26/16 11:46 05/26/16 11:46 05/26/16 11:46 05/26/16 11:46 05/26/16 11:46 Intake & Output 05/25/16 05/26/16 05/27/16 06:59 06:59 06:59 Output Total 600 Balance -600 Exam: General: Patient is alert and looks well. HEENT: There is no pallor or jaundice. PERRLA. Oropharynx normal Respiratory: She has kyphosis. No respiratory distress. Chest wall palpitation was unremarkable. Breath sounds were normal Cardiovascular: Heart sounds 1 and 2 normal with no murmurs. Abdominal: Not distended. Soft and nontender. Liver and spleen not palpable. No ascites demonstrated. Bowel sounds active. Rectal examination was deferred. Extremities: No edema Neurological: Alert and oriented x4. Grossly nonfocal. Normal speech Skin: Multiple bruises Psychological: Normal affect Results Laboratory Results: 05/26/16 05/26/16 13:14 13:14 Creatine Kinase 81 CK-MB (CK-2) 1.30 Troponin I 0.014 Impressions: Abdomen/Pelvis CT 05/25/16 19:54 IMPRESSION: No acute process. Left lower quadrant ostomy. Small ventral hernia containing nonobstructed bowel. Chest X-Ray 05/26/16 02:11 IMPRESSION: NO ACUTE RADIOGRAPHIC FINDING IN THE CHEST. Extensive calcified nodes. Lung Scan-VQ NM 05/26/16 02:41 IMPRESSION: NORMAL VENTILATION-PERFUSION LUNG SCAN. NEGATIVE FOR PULMONARY EMBOLI. Assessment & Plan - Diagnosis (1) Abdominal pain in female patient Is this a current diagnosis for this admission?: YesPlan: She came in with a few days history of abdominal pain though she has had problems with pain and recurrent nausea over the years. Her blood work and CAT scan have been unremarkable. I suggested an EGD but she was reluctant to undergo. She will continue with her Nexium and follow up with her clean up person. I suspect her pain is related to IBS, her colostomy status or functional (3) Nausea & vomiting Is this a current diagnosis for this admission?: YesPlan: She started having nausea and vomited after she was given morphine in the emergency room. She is doing better today (4) Fibromyalgia Is this a current diagnosis for this admission?: Yes (5) Colostomy status Is this a current diagnosis for this admission?: YesPlan: Her colostomy was placed due to a complicated diverticular disease. There is no plan to reverse this
[2016-05-26] MEDS: CARBOXYMETHYLCELLULOSE SOD 0.5% 0.4 ML DROPERETTE OU SCH (19:21)
[2016-05-26] MEDS: DOCUSATE SODIUM 100 MG CAPSULE PO SCH (19:21)
[2016-05-26] MEDS: TRAMADOL HCL 50 MG TABLET PO SCH ×2 (20:01→23:59)
[2016-05-26 20:35] LABS: CREATINE KINASE MB 1.35 ng/mL (<4.55); TROPONIN I 0.021 ng/mL
[2016-05-26] MEDS ORDERED: MONTELUKAST SODIUM 10 MG TABLET PO SCH (22:00)
[2016-05-26] MEDS ORDERED: OMEGA-3 ACID ETHYL ESTERS 1 GM CAPSULE PO SCH (22:00)
[2016-05-26] MEDS ORDERED: (PENDING PHARMACY ID) (Metoclopramide Hcl [Reglan] 2.5 MG) PO SCH (22:00)
[2016-05-26] MEDS ORDERED: (PENDING PHARMACY ID) (Omega-3/Dha/Epa/Fish Oil [Fish Oil 1,000 Mg Softgel] 1 EACH) PO SCH (22:00)
[2016-05-26] MEDS ORDERED: METHOCARBAMOL 750 MG TABLET PO SCH (22:00)
[2016-05-26] MEDS ORDERED: VITAMIN E (DL, ACETATE) 400 UNIT CAPSULE PO SCH (22:00)
[2016-05-26] MEDS: FLUTICASONE NASAL SPRAY 50 MCG/SPRY 120 SPRAY/16 GM NASL SCH (22:08)
[2016-05-26] MEDS: GABAPENTIN 300 MG CAPSULE PO SCH (22:09)
[2016-05-27] MEDS: METHYLPREDNISOLONE INJ 40 MG/1 ML SDV IV SCH (06:36)
[2016-05-27] MEDS: TRAMADOL HCL 50 MG TABLET PO SCH ×2 (06:46→11:20)
[2016-05-27] MEDS: GABAPENTIN 300 MG CAPSULE PO SCH (06:46)
[2016-05-27] MEDS ORDERED: CHLORHEXIDINE GLUCONATE 0.12% ORAL RINSE 15 ML UDC MM PRN (07:46)
[2016-05-27] MEDS ORDERED: MECLIZINE HCL 25 MG TABLET PO PRN (07:46)
[2016-05-27] MEDS ORDERED: ACETAMINOPHEN PO SCH (08:00)
[2016-05-27] MEDS ORDERED: [UNRECOGNIZED DRUG - OTHER] PO SCH (08:00)
[2016-05-27] MEDS ORDERED: PREDNISONE 5 MG TABLET PO SCH ×2 (08:00→12:00)
[2016-05-27] MEDS ORDERED: BUTALB PO SCH (08:00)
[2016-05-27] MEDS ORDERED: LANSOPRAZOLE 30 MG TAB.RAP.DR PO SCH (08:00)
[2016-05-27] MEDS ORDERED: CAFFEINE PO SCH (08:00)
[2016-05-27] MEDS: CALCIUM CARBONATE 500 MG TAB.CHEW PO SCH ×2 (08:08→11:20)
[2016-05-27] MEDS: BUTALB/ACETAMINOPHEN/CAFFEINE 1 TAB EACH PO SCH ×2 (08:09→11:19)
[2016-05-27] MEDS: DOCUSATE SODIUM 100 MG CAPSULE PO SCH (09:08)
[2016-05-27] MEDS: FLUTICASONE NASAL SPRAY 50 MCG/SPRY 120 SPRAY/16 GM NASL SCH (09:09)
[2016-05-27] MEDS: CARBOXYMETHYLCELLULOSE SOD 0.5% 0.4 ML DROPERETTE OU SCH (09:10)
[2016-05-27] MEDS ORDERED: SODIUM CHLORIDE 5% OPH SOLN 15 ML OU SCH (10:00)
[2016-05-27] MEDS ORDERED: LIDOCAINE 5% (700 MG) TRANSDERMAL ADH..PATCH TP SCH (10:00)
[2016-05-27] MEDS ORDERED: POTASSIUM CHLORIDE 10 MEQ TABLET.SA PO SCH (10:00)
[2016-05-27] MEDS ORDERED: FOLIC ACID 1 MG TABLET PO SCH (10:00)
[2016-05-27] MEDS ORDERED: CIPROFLOXACIN HCL/DEXAMETH OTIC DROP 7.5 ML AU SCH (10:00)
[2016-05-27] MEDS ORDERED: MAGNESIUM OXIDE 400 MG TABLET PO SCH (10:00)
[2016-05-27] MEDS ORDERED: ASPIRIN 81 MG TABLET, CHEWABLE PO SCH (10:00)
[2016-05-27] MEDS ORDERED: ASPIRIN 81 MG TABLET, ENT COATED PO SCH (10:00)
[2016-05-27 11:37] VITALS: BP 107/52
--- NOTE | 2016-05-27 11:37 | PDOC DISCHARGE SUMMARY ---
General - Admit/Disc Date/PCP Admission Date/Primary Care Provider: 05/26/16 10:25 Discharge Date: 05/27/16 - Discharge Diagnosis (1) Abdominal pain in female patient Is this a current diagnosis for this admission?: YesSummary: Seen by gastroenterology and felt to represent irritable bowel syndrome. (2) Diabetes mellitus Is this a current diagnosis for this admission?: Yes (3) Fibromyalgia Is this a current diagnosis for this admission?: Yes (4) Prinzmetal's angina Is this a current diagnosis for this admission?: Yes (5) Hyperlipidemia Is this a current diagnosis for this admission?: Yes (6) Sarcoidosis Is this a current diagnosis for this admission?: Yes (7) Hypertension Is this a current diagnosis for this admission?: Yes (8) Chest pain Is this a current diagnosis for this admission?: Yes (9) Hypoxia Is this a current diagnosis for this admission?: YesSummary: Resolved. With negative VQ scan. - Additional Information Resuscitation Status: Full Code Discharge Diet: As Tolerated Discharge Activity: Activity As Tolerated Home Medications: Acyclovir [Zovirax 200 mg Capsule] 200 mg PO BIDP PRN 05/26/16 Acyclovir [Zovirax 200 mg Capsule] 200 mg PO Q2D@2200 05/26/16 Amitriptyline HCl [Elavil 25 mg Tablet] 12.5 mg PO WSUPPER 05/26/16 Aspirin [Aspirin EC] 81 mg PO DAILY 05/26/16 Azelaic Acid [Finacea] 1 applic TP BIDP PRN 05/26/16 Benzonatate [Tessalon Perle 100 mg Capsule] 100 mg PO DAILYP PRN 05/26/16 Butalb/Acetaminophen/Caffeine [Zebutal 50-325-40 mg Capsule] 1 cap PO BIDBL 06/08 Calcium Carbonate/Vitamin D3 [Calcium 500 + Vit D Caplet] 2 each PO WSUPPER 06/08 Carboxymethylcellulose Sodium [Refresh Tears] 1 drop OU BID 05/26/16 Chlorhexidine Gluconate [Peridex] 15 ml MM DAILYP PRN 05/26/16 Cholecalciferol (Vitamin D3) [Vitamin D3] 50,000 unit PO CANELA@1000 05/26/16 Ciprofloxacin HCl/Dexameth [Ciprodex Otic Suspension 7.5 ml Bottle] 1 drop AU BID 05/26/16 Cyanocobalamin (Vitamin B-12) [Vitamin B-12 100 mcg Tablet] 100 mcg PO WLUNCH Diclofenac Sodium [Voltaren] 1 applic TP BIDP PRN 05/26/16 Docusate Sodium [Colace 100 mg Capsule] 100 mg PO BID 05/26/16 Emollient Base [Vanicream] 1 applic TP BIDP PRN 05/26/16 Esomeprazole Magnesium [Nexium] 40 mg PO BIDBS 05/26/16 Fluticasone Propionate [Flonase Nasal Nada 50 Mcg/Nada 16 gm] 2 sprays NASL Q12 05/26/16 Folic Acid [Folvite 1 mg Tablet] 1 mg PO DAILY 05/26/16 Gabapentin [Neurontin 300 mg Capsule] 300 mg PO QPM 05/26/16 Gabapentin [Neurontin] 600 mg PO Q8 05/26/16 Hydrocodone/Acetaminophen [Benge 7.5-325 mg Tablet] 1 tab PO DAILYP PRN Magnesium Oxide [Mag-Ox 400 mg Tablet] 400 mg PO DAILY 05/26/16 Meclizine HCl [Antivert 25 mg Tablet] 25 mg PO Q6HP PRN 05/26/16 Methocarbamol [Robaxin 750 mg Tablet] 750 mg PO QHS 05/26/16 Metoclopramide HCl [Reglan] 2.5 mg PO Q2D@2200 05/26/16 Montelukast Sodium [Singulair 10 mg Tablet] 10 mg PO QHS 05/26/16 Nitroglycerin [Nitrostat] 0.4 mg SL Q5MP PRN 05/26/16 [place]-3/Dha/Epa/Fish Oil [Fish Oil 1,000 mg Softgel] 1 each PO QHS 05/26/16 Ondansetron HCl [Zofran 8 mg Tablet] 4 mg PO Q6HP PRN 05/26/16 Potassium Chloride [Klor-Con 10 Meq Tablet.sa] 20 meq PO DAILY 05/26/16 Pravastatin Sodium [Pravachol] 20 mg PO QHS 05/26/16 Prednisone 4 mg PO WSUPPER 05/26/16 Prednisone 5 mg PO WLUNCH 05/26/16 Prednisone 10 mg PO QAM 05/26/16 Promethazine HCl [Phenergan 25 mg Tablet] 25 mg PO Q6HP PRN 05/26/16 Pyridoxine HCl [Vitamin B-6 Tablet 50 mg] 25 mg PO DAILY 05/26/16 Sodium Chloride [Anne-128 Oph Soln 5% 15 ml] 1 drop OU BID 05/26/16 Tramadol HCl [Ultram 50 mg Tablet] 50 mg PO Q6 05/26/16 Vitamin B Complex [B Complex] 1 each PO WLUNCH 05/26/16 Vitamin E (Dl, Acetate) [Vitamin E 400 Unit Capsule] 400 unit PO Q2D@2200 Zinc 50 mg PO WSUPPER 05/26/16 History of Present Illness History of Present Illness: CHUY SYKES is a 70 year old female who has a history of pancreatitis thought to be secondary to metformin who presented with left upper quadrant abdominal pain. She presented to the emergency room and her lipase was normal. She was going to be discharged home but then began to have some chest discomfort for which she took a nitroglycerin and then she became hypotensive. Patient after that then developed some hypoxia. She was given Narcan and normalization of her saturations as well as her blood pressure. Because of the chest discomfort she underwent a VQ scan which was normal. The patient has a history of Prinzmetal angina by her report. The patient reports that her pain in the left upper quadrant does not radiate. She's had difficulty tolerating by mouth for the last 2 days. She does use prednisone chronically and has not had her dose either today or yesterday. Denies any hematemesis. Denies any melena or bright red blood per rectum. Hospital Course Hospital Course: 70-year-old female who presented with abdominal pain. She initially thought that this represented pancreatitis. She had a normal lipase and was feeling better and was going to be discharged from the emergency room but then began to experience chest pain. She has a history of Prinzmetal's angina and took a nitroglycerin. Patient then developed hypotension and became hypoxic. She was given IV fluids as well as Narcan and her blood pressure returned to normal. She also had resolution of her hypoxia. Because of the hypoxia she underwent a VQ scan which was negative. She continued to have abdominal pain and was admitted for this abdominal pain. She was given IV fluids and made nothing by mouth. She was evaluated by gastroenterology who recommended an EGD however the patient refused to have an EGD done. Gastroenterology felt that this pain most likely represented irritable bowel syndrome and we advanced her diet and she was able to tolerate it and she was discharged home. Further medical problems were stable during this hospitalization. Physical Exam Vital Signs: Temp Pulse Resp BP Pulse Ox 97.3 F 57 L 18 154/80 H 100 05/27/16 07:14 05/27/16 07:14 05/27/16 07:14 05/27/16 07:14 05/27/16 07:14 Intake & Output 05/26/16 05/27/16 05/28/16 06:59 06:59 06:59 Intake Total 2775 Output Total 600 Balance 2175 General appearance: PRESENT: no acute distress Eye exam: PRESENT: conjunctiva pink. ABSENT: scleral icterus Mouth exam: PRESENT: moist, tongue midline Neck exam: ABSENT: JVD Cardiovascular exam: PRESENT: RRR. ABSENT: diastolic murmur, rubs, systolic murmur GI/Abdominal exam: PRESENT: normal bowel sounds, soft, tenderness - Mild left upper quadrant tenderness but no guarding or rebound.. ABSENT: distended, guarding, mass, organolmegaly, rebound Extremities exam: ABSENT: calf tenderness, clubbing, pedal edema Neurological exam: PRESENT: alert, awake, oriented to person, oriented to place , oriented to time, oriented to situation, CN II-XII grossly intact. ABSENT: motor sensory deficit Psychiatric exam: PRESENT: appropriate affect Skin exam: PRESENT: dry, intact, warm. ABSENT: cyanosis, rash Results Laboratory Results: 05/26/16 05/26/16 05/26/16 13:14 13:14 19:35 Creatine Kinase 81 72 CK-MB (CK-2) 1.30 Troponin I 0.014 05/26/16 19:35 Creatine Kinase CK-MB (CK-2) 1.35 Troponin I 0.021 Impressions: Abdomen/Pelvis CT 05/25/16 19:54 IMPRESSION: No acute process. Left lower quadrant ostomy. Small ventral hernia containing nonobstructed bowel. Chest X-Ray 05/26/16 02:11 IMPRESSION: NO ACUTE RADIOGRAPHIC FINDING IN THE CHEST. Extensive calcified nodes. Lung Scan-VQ NM 05/26/16 02:41 IMPRESSION: NORMAL VENTILATION-PERFUSION LUNG SCAN. NEGATIVE FOR PULMONARY EMBOLI. Qualifiers PATEINT BEING DISCHARGED WITH ANY OF THE FOLLOWING DIAGNOSIS?: No Plan Discharge Plan: Patient is discharged to home and will follow-up with primary care doctor in 1- 2 weeks.
[2016-05-27] MEDS ORDERED: (PENDING PHARMACY ID) (Cyanocobalamin (Vitamin B-12) [Vitamin B-12 100 Mcg Tablet] 100 MCG PO SCH (12:00)
[2016-05-27] MEDS ORDERED: CALCIUM CARBONATE 250 MG/VITAMIN D3 125 UNIT TABLET PO SCH (17:00)
[2016-05-27] MEDS ORDERED: (PENDING PHARMACY ID) (Zinc [Zinc] 50 MG) PO SCH (17:00)
[2016-05-27] MEDS ORDERED: VITAMIN D3 PO SCH (17:00)
[2016-05-27] MEDS ORDERED: PREDNISONE 1 MG TABLET PO SCH (17:00)
[2016-05-27] MEDS ORDERED: CALCIUM CARBONATE PO SCH (17:00)
[2016-05-27] MEDS ORDERED: [UNRECOGNIZED DRUG - OTHER] PO SCH (17:00)
[2016-05-27] MEDS ORDERED: GABAPENTIN 300 MG CAPSULE PO SCH (18:00)
[2016-05-27] MEDS ORDERED: METOCLOPRAMIDE HCL ORAL SOLN 10 MG/10 ML UDCUP PO SCH (22:00)
[2016-05-31] MEDS ORDERED: ERGOCALCIFEROL (VITAMIN D2) 50000 UNIT (1.25 MG) CAPSULE PO SCH (10:00)
[2016-05-31] MEDS ORDERED: (PENDING PHARMACY ID) (Cholecalciferol (Vitamin D3) [Vitamin D3] 50,000 UNIT) PO SCH (10:00)
== END 2016-05-27 13:39 | disposition home or self-care (01) ==
LOC: ER 18:24 → EH 05-26 04:25 → UNDOADMOB 05-26 04:25 → EH 05-26 07:42 → 5 05-26 07:42 → EH 05-26 10:25 → 5 05-26 10:25
PROVIDERS: ADMIT Internal Medicine; ATTEND Internal Medicine
PROC: 3E033GC Introduction of Other Therapeutic Substance into Peripheral Vein, Percutaneous Approach (ICD-10-PCS; principal; 2016-05-25)
PROC: 3E033GC Introduction of Other Therapeutic Substance into Peripheral Vein, Percutaneous Approach (ICD-10-PCS; 2016-05-25)
PROC: 3E033GC Introduction of Other Therapeutic Substance into Peripheral Vein, Percutaneous Approach (ICD-10-PCS; 2016-05-25)
DX: R10.12 Left upper quadrant pain (principal); R11.2 Nausea with vomiting, unspecified; R09.02 Hypoxemia; R07.9 Chest pain, unspecified; I20.1 Angina pectoris with documented spasm; E11.9 Type 2 diabetes mellitus without complications; M79.7 Fibromyalgia; I10 Essential (primary) hypertension; E78.5 Hyperlipidemia, unspecified; D86.9 Sarcoidosis, unspecified; Z93.3 Colostomy status
CPT/HCPCS: 93005 ×2; 96376; 99285; 96374; 96375; 36415 ×2; 82553; 82962; 82803; 82550; 83690; 85025; 80053; 81001; 84484; 80307; 83880; 71010; 78582; 74177; 93010; G0378 ×2; A9540; A9567; A9270 ×18; J2920; J2270; J2310; J2060; J3490 ×3; J2405 ×2; J7030; Q9969; J0171; J1610; J2250; J2550; J3010; J7512

== ENCOUNTER 2016-10-14 22:52 | Emergency (ER) | payer MEDICARE, OTHER ==
[2016-10-15 01:08] LABS: ABSOLUTE BASOPHILS # (AUTO) 0.1 10^3/uL (0.0-0.2); ABSOLUTE EOSINOPHILS # (AUTO) 0.1 10^3/uL (0.0-0.6); ABSOLUTE LYMPHOCYTES (AUTO) 1.6 10^3/uL (0.5-4.7); ABSOLUTE MONOCYTES (AUTO) 0.8 10^3/uL (0.1-1.4); ABSOLUTE NEUT (AUTO) 4.8 10^3/uL (1.7-8.2); BASOPHILS % (AUTO) 0.8 % (0-2); EOSINOPHILS % (AUTO) 1.2 % (0-6); HEMATOCRIT 39.6 % (36.0-47.0); HEMOGLOBIN 12.7 g/dL (12.0-15.5); HGB HCT DIFFERENCE -1.5; LYMPHOCYTES % (AUTO) 22.1 % (13-45); MEAN CORPUSCULAR HEMOGLOBIN 27.6 pg (27.0-33.4); MEAN CORPUSCULAR HGB CONC 32.1 g/dL (32.0-36.0); MEAN CORPUSCULAR VOLUME 86 fl (80-97); MONOCYTES % (AUTO) 10.7 % (3-13); RED BLOOD COUNT 4.61 10^6/uL (3.72-5.28); RED CELL DISTRIBUTION WIDTH 17.3 % (11.5-14.0); SEGMENTED NEUTROPHILS % (AUTO) 65.2 % (42-78); WHITE BLOOD COUNT 7.4 10^3/uL (4.0-10.5)
[2016-10-15 01:43] LABS: ALANINE AMINOTRANSFERASE 31 U/L (9-52); ALBUMIN 3.7 g/dL (3.5-5.0); ALKALINE PHOSPHATASE 71 U/L (38-126); ANION GAP 7 (5-19); ASPARTATE AMINO TRANSFERASE 21 U/L (14-36); BILIRUBIN,DIRECT 0.4 mg/dL (0.0-0.4); BILIRUBIN,TOTAL 0.5 mg/dL (0.2-1.3); BLOOD UREA NITROGEN 20 mg/dL (7-20); CALCIUM 9.4 mg/dL (8.4-10.2); CARBON DIOXIDE 26 mmol/L (22-30); CHLORIDE 100 mmol/L (98-107); GLUCOSE 116 mg/dL (75-110); POTASSIUM 4.9 mmol/L (3.6-5.0); SODIUM 132.7 mmol/L (137-145)
[2016-10-15] MEDS ORDERED: MORPHINE SULFATE 10 MG/ML INJ IV ONE (02:57)
[2016-10-15] MEDS ORDERED: ONDANSETRON HCL INJ/PF 4 MG/2 ML SDV IV ONE (02:57)
[2016-10-15] MEDS ORDERED: NORMAL SALINE 1000 ML 1,000 ML IV PRN (02:57)
--- NOTE | 2016-10-15 02:58 | ER Document Report ---
ED GI/ - General Chief Complaint: Upper Abdominal Pain Stated Complaint: ABDOMINAL PAIN Time Seen by Provider: 10/15/16 02:42 Mode of Arrival: Ambulatory Information source: Patient TRAVEL OUTSIDE OF THE [place] IN LAST 30 DAYS: No - HPI Patient complains to provider of: Abdominal pain Onset: Other - 2 weeks Timing/Duration: Waxing and waning Quality of pain: Achy, Sharp Severity at maximum: Moderate Severity in ED: Moderate Pain Level: 4 Location: Epigastric Associated symptoms: Nausea Exacerbated by: Food Relieved by: Denies Similar symptoms previously: Yes Recently seen / treated by doctor: Yes Notes: 10/15/16 05:36 Patient is a 70-year-old female presenting to the emergency room for epigastric abdominal pain with nausea has been going on intermittently over the past 2 weeks, she was seen by her primary care provider and diagnosed with pancreatitis , has finished 2 courses of Cipro with only minimal intermittent relief of her symptoms, she denies any vomiting, no diarrhea, has a history of perforated bowel 2 years ago and has a colostomy, also has a history of diabetic gastroparesis, history of pancreatitis in March of this year as well which was the first time she had it, she denies being a user of alcohol, she is on several medications - Related Data Allergies/Adverse Reactions: No Known Allergies Allergy (Verified 10/15/16 00:11) Past Medical History - General Information source: Patient - Social History Smoking Status: Unknown if Ever Smoked Family History: Reviewed & Not Pertinent Patient has suicidal ideation: No Patient has homicidal ideation: No - Past Medical History Cardiac Medical History: Reports: Hx Hypercholesterolemia, Hx Hypertension Endocrine Medical History: Reports: Hx Diabetes Mellitus Type 2 Renal/ Medical History: Denies: Hx Peritoneal Dialysis GI Medical History: Reports: Hx Diverticulitis - Requiring partial colectomy, Hx Gastroesophageal Reflux Disease Musculoskeltal Medical History: Reports Hx Arthritis, Reports Hx Fibromyalgia Psychiatric Medical History: Denies: Hx Depression - MED FOR FIBROMYALGIA Past Surgical History: Reports: Hx Bowel Surgery, Hx Colostomy - Secondary to ruptured diverticulum, Hx Orthopedic Surgery - back Review of Systems - Review of Systems Constitutional: No symptoms reported EENT: No symptoms reported Cardiovascular: No symptoms reported Respiratory: No symptoms reported Gastrointestinal: See HPI Genitourinary: No symptoms reported Female Genitourinary: No symptoms reported Musculoskeletal: No symptoms reported Skin: No symptoms reported Hematologic/Lymphatic: No symptoms reported Neurological/Psychological: No symptoms reported -: Yes All other systems reviewed and negative Physical Exam - Vital signs Vitals: Temp Pulse Resp BP Pulse Ox 97.7 F 64 18 118/63 98 10/15/16 00:10 10/15/16 00:10 10/15/16 00:10 10/15/16 00:10 10/15/16 00:10 Interpretation: Normal - General General appearance: Appears well, Alert - HEENT Head: Normocephalic, Atraumatic Eyes: Normal Pupils: PERRL - Respiratory Respiratory status: No respiratory distress Chest status: Nontender Breath sounds: Normal Chest palpation: Normal - Cardiovascular Rhythm: Regular Heart sounds: Normal auscultation Murmur: No - Abdominal Inspection: Other - Colostomy in place Distension: No distension Bowel sounds: Normal Tenderness: Tender - Epigastric Organomegaly: No organomegaly - Back Back: Normal, Nontender - Extremities General upper extremity: Normal inspection, Nontender, Normal color, Normal ROM , Normal temperature General lower extremity: Normal inspection, Nontender, Normal color, Normal ROM , Normal temperature, Normal weight bearing. No: Aaron's sign - Neurological Neuro grossly intact: Yes Cognition: Normal Orientation: AAOx4 [place] Coma Scale Eye Opening: Spontaneous [place] Coma Scale Verbal: Oriented [place] Coma Scale Motor: Obeys Commands [place] Coma Scale Total: 15 Speech: Normal Motor strength normal: LUE, RUE, LLE, RLE Sensory: Normal - Psychological Associated symptoms: Normal affect, Normal mood - Skin Skin Temperature: Warm Skin Moisture: Dry Skin Color: Normal Course - Re-evaluation Re-evalutation: 10/15/16 05:31 Lab and imaging findings were discussed with patient and family member at bedside which are significant for mild pancreatitis, likely caused from medications that patient is currently taking, she was advised to follow-up with her primary care provider, maintain a clear liquid diet for 2 or 3 days, will be provided with pain and nausea meds and information for follow-up, advised to return if any additional concerns, patient acknowledges understanding and agreement with this plan - Vital Signs Vital signs: Temp Pulse Resp BP Pulse Ox 97.7 F 64 18 118/63 98 10/15/16 00:10 10/15/16 00:10 10/15/16 00:10 10/15/16 00:10 10/15/16 00:10 - Laboratory Result Diagrams: 10/15/16 00:49 10/15/16 00:49 Laboratory results interpreted by me: 10/15/16 10/15/16 00:49 00:49 RDW 17.3 H Sodium 132.7 L Glucose 116 H Total Protein 6.0 L Lipase 716.0 H - Diagnostic Test Radiology reviewed: Image reviewed, Reports reviewed Discharge - Discharge Clinical Impression: Pancreatitis Qualifiers: Chronicity: acute Pancreatitis type: unspecified pancreatitis type Acute pancreatitis complication: no infection or necrosis Qualified Code(s): K85.90 - Acute pancreatitis without necrosis or infection, unspecified Condition: Stable Disposition: HOME, SELF-CARE Instructions: Pancreatitis ([facility]) Additional Instructions: Follow up with your primary care provider in one to 2 days. Return to the emergency room immediately if symptoms worsen or any additional concerns. Prescriptions: Ondansetron [Zofran Odt 4 mg Tablet] 1 - 2 tab PO Q4H #10 tab.rapdis Oxycodone HCl/Acetaminophen [Percocet 5-325 mg Tablet] 1 - 2 tab PO ASDIR PRN # 15 tablet PRN Reason:
--- NOTE | 2016-10-15 05:21 | RADIOLOGY REPORT (SQ) ---
EXAM DESCRIPTION: CT ABD/PELVIS WITH IV ONLY COMPLETED DATE/TIME: 10/15/2016 4:56 am REASON FOR STUDY: epig abdominal pain COMPARISON: 4.05.08 TECHNIQUE: CT scan of the abdomen and pelvis performed using helical scanning technique with dynamic intravenous contrast injection. No oral contrast. Images reviewed with lung, soft tissue, and bone windows. Reconstructed coronal and sagittal MPR images reviewed. Delayed images for evaluation of the urinary system also acquired. All images stored on PACS. All CT scanners at this facility use dose modulation, iterative reconstruction, and/or weight based d osing when appropriate to reduce radiation dose to as low as reasonably achievable (ALARA). [facility]: Dose Right [facility]: CareDose [facility]: Dose Right [facility]: Teradose 4D [facility]: LUMO [employer] CONTRAST TYPE AND DOSE: contrast/concentration: Isovue 370.00 mg/ml; Total Contrast Delivered: 76.0 ml; Total Saline Delivered: 68.0 ml RENAL FUNCTION: Creatinine 0.8 RADIATION DOSE: Up-to-date CT equipment and radiation dose reduction techniques were employed. CTDIv ol: 11.0 mGy. DLP: 1111 mGy-cm.. LIMITATIONS: None. FINDINGS: LOWER CHEST: Large calcified granulomata of the lower mediastinum, parasellar periods, and infra antonette partially imaged. Moderate centrilobular emphysema of the visualized lung bases. LIVER: Normal size. No masses. No dilated ducts. SPLEEN: Normal size. No focal lesions. PANCREAS: No masses. No significant calcifications. No adjacent inflammation or peripancreatic fluid collections. Pancreatic duct not dilated. GALLBLADDER: No identified stones by CT criteria. No inflammatory changes to suggest cholecystitis. ADRENAL GLANDS: No significant masses or asymmetry. RIGHT KIDNEY AND URETER: No solid masses. No significant calcifications. No hydronephrosis or hyd roureter. LEFT KIDNEY AND URETER: No solid masses. No significant calcifications. No hydronephrosis or hydr oureter. AORTA AND VESSELS: No aneurysm. No dissection. Renal arteries, SMA, celiac without stenosis. Atheros clerosis. RETROPERITONEUM: No retroperitoneal adenopathy, hemorrhage or masses. BOWEL AND PERITONEAL CAVITY: Left lower abdominal colostomy. Moderate colonic stool retention. APPENDIX: Normal. PELVIS: No mass. No free fluid. Normal bladder. ABDOMINAL WALL: No masses. No hernias. BONES: Deformity of the left it left ischium consistent with prior injury. Mild -moderate osteoarthr itis. L2-S1 posterior hardware fusion, L3-S1 intervertebral disc replacement, 0.5 cm L3 anterolisthe sis, and 0 point 2 cm L5 anterolisthesis. [id number] T10 anterior compression deformity of mod erate vacuum disc desiccation and lower thoracic levels. Stable compared with prior exam, 05/25/2016. OTHER: No other significant finding. IMPRESSION: No acute findings. Colostomy. TECHNICAL DOCUMENTATION: JOB ID: [id number] Quality ID # [id number]: Final reports with documentation of one or more dose reduction techniques (e.g., Au tomated exposure control, adjustment of the mA and/or kV according to patient size, use of iterative reconstruction technique) 2010 [employer]- All Rights Reserved
[2016-10-15 05:48] VITALS: BP 153/74
== END 2016-10-15 05:49 | disposition home or self-care (01) ==
LOC: ER 22:52
DX: K85.90 Acute pancreatitis without necrosis or infection, unspecified (principal); R10.13 Epigastric pain; R11.0 Nausea; E11.9 Type 2 diabetes mellitus without complications; I10 Essential (primary) hypertension; Z93.3 Colostomy status; Z79.899 Other long term (current) drug therapy; Z87.19 Personal history of other diseases of the digestive system
CPT/HCPCS: 99284; 96361; 96374; 96375; 36415; 83690; 85025; 80053; 74177; J2270; J2405; J7030

== ENCOUNTER → 2016-12-24 | Day surgery (SDC) | payer MEDICARE, OTHER ==
[~2016-12-24] MED LIST: BUPIVACAINE HCL 0.5 % INJ/PF 30 ML SDV ONE
--- NOTE | 2016-12-24 12:03 | Operative Report ---
PROCEDURE: KNEE RADIOFREQUENCY right under ultrasound guidance Preoperative Diagnosis: Right knee osteoarthritis Postoperative Diagnosis: Right knee osteoarthritis 1. Superolateral genicular branch from the vastus lateralis 2. Superomedial genicular branch from the vastus medialis 3. Inferomedial genicular branch from the saphenous nerve 4. Medial retinacular branch from the vastus intermedius DATE OF PROCEDURE: December 24, 2016 ANESTHESIA: Local anesthesia COMPLICATIONS: None reported PROCEDURE IN DETAIL: Hx/PE/meds/allergies/applicable labs reviewed. No changes and no contraindications were found. Full description of the procedure was provided including benefits as well as possible complications including transient increased pain, stomach irritation, mood alteration, transient weakness or parasthesias as well as more serious nerve injury, bleeding, infection or allergic reaction. Informed consent was obtained and documented. The patient was brought to the procedure room and placed on the exam table in a comfortable supine position. The place for needle placement was obtained by manual palpation with ultrasound confirmation. The sterile field was prepared by chloroprep and sterile drapes. Local anesthesia superficial and deep was provided by local infiltration of 2% lidocaine. A 17g 50mm radiofrequency introducer needle with a 4 mm active tip was placed overlying the right knee joint and using ultrasound guidance the needle was advanced to a bony endpoint on the superiolateral portion of the femoral condyle of the right knee. A second needle was advanced to a bony endpoint on the superiomedial portion of the femoral condyle. A third needle was then placed over the inferiomedial portion of the tibial condyle until a bony endpoint was met. 4th needle placed 3mm above the patella. Attempted aspiration yielded no blood. Transverse ultrasound views showed all the needles at 50% depth of the femur and tibia. Motor stimulation was tested at 2.0 volts with no leg movement. Images were saved in AP and lateral. A mixture consisting of 0.5% bupivacaine was slowly injected. Then a radiofrequency ablation of each of the geniculate nerves were done at 80 degrees Celsius for 2 minutes and 30 seconds each. The needles were withdrawn. The patient tolerated the procedure well. After observation the patient was discharged with instructions and follow up. They were also provided contact information to call regarding any concerning symptoms or questions. IMPRESSION: 1. Successful geniculate right knee radiofrequency ablation was performed. 2. The patient was given prescription of home medicines. 3. RTC in 1-2 week(s).
== END ==
LOC: RAD 12:03
PROVIDERS: ATTEND Family Medicine
PROC: 3E0T3TZ Introduction of Destructive Agent into Peripheral Nerves and Plexi, Percutaneous Approach (ICD-10-PCS; principal; 2016-12-24)
DX: M17.12 Unilateral primary osteoarthritis, left knee (principal)
CPT/HCPCS: 64640

== ENCOUNTER → 2017-01-21 | Day surgery (SDC) | payer MEDICARE, OTHER ==
--- NOTE | 2017-01-21 09:24 | Operative Report ---
PROCEDURE: KNEE RADIOFREQUENCY left under ultrasound guidance Preoperative Diagnosis: Left knee osteoarthritis Postoperative Diagnosis: Left knee osteoarthritis 1. Superolateral genicular branch from the vastus lateralis 2. Superomedial genicular branch from the vastus medialis 3. Inferomedial genicular branch from the saphenous nerve 4. Medial retinacular branch from the vastus intermedius DATE OF PROCEDURE: January 21, 2017 ANESTHESIA: Local anesthesia COMPLICATIONS: None reported PROCEDURE IN DETAIL: Hx/PE/meds/allergies/applicable labs reviewed. No changes and no contraindications were found. Full description of the procedure was provided including benefits as well as possible complications including transient increased pain, stomach irritation, mood alteration, transient weakness or parasthesias as well as more serious nerve injury, bleeding, infection or allergic reaction. Informed consent was obtained and documented. The patient was brought to the procedure room and placed on the exam table in a comfortable supine position. The place for needle placement was obtained by manual palpation with ultrasound confirmation. The sterile field was prepared by chloroprep and sterile drapes. Local anesthesia superficial and deep was provided by local infiltration of 2% lidocaine. A 17g 50 mm radiofrequency introducer needle with a 4 mm active tip was placed overlying the left knee joint and using ultrasound guidance the needle was advanced to a bony endpoint on the superiolateral portion of the femoral condyle of the left knee. A second needle was advanced to a bony endpoint on the superiomedial portion of the femoral condyle. A third needle was then placed over the inferiomedial portion of the tibial condyle until a bony endpoint was met. A 4th needle placed 3mm above the patella. Attempted aspiration yielded no blood. Transverse ultrasound views showed all the needles at 50% depth of the femur and tibia. Motor stimulation was tested at 2.0 volts with no leg movement. Images were saved in AP and lateral. A mixture consisting of 0.5% bupivacaine was slowly injected. Then a radiofrequency ablation of each of the geniculate nerves were done at 80 degrees Celsius for 2 minutes and 30 seconds each. The needles were withdrawn. The patient tolerated the procedure well. After observation the patient was discharged with instructions and follow up. They were also provided contact information to call regarding any concerning symptoms or questions. IMPRESSION: 1. Successful geniculate left knee radiofrequency ablation was performed. 2. The patient was given prescription of home medicines. 3. RTC in 1-2 week(s).
== END ==
LOC: RAD 08:11
PROVIDERS: ATTEND Family Medicine
PROC: 3E0T3TZ Introduction of Destructive Agent into Peripheral Nerves and Plexi, Percutaneous Approach (ICD-10-PCS; principal; 2017-01-21)
DX: M17.0 Bilateral primary osteoarthritis of knee (principal)
CPT/HCPCS: 64640

== ENCOUNTER → 2020-01-25 | Day surgery (SDC) | payer MEDICARE, OTHER ==
[~2020-01-25] MED LIST changes: +LIDOCAINE 1% INJ-PF (10 MG/ML) 30 ML SDV ONE
--- NOTE | 2020-01-25 11:00 | Operative Report ---
PREOPERATIVE DIAGNOSIS: Spondylolisis without myopathy or radiculopathy M47.818// Lumbar Sacral Spondylolisis without myopathy or radiculopathy M47.817 POSTOPERATIVE DIAGNOSIS:Spondylolisis without myopathy or radiculopathy M47.818// Lumbar Sacral Spondylolisis without myopathy or radiculopathy M47.817 PROCEDURE: 1. Radiofrequency Ablation of bilateral L5 dorsal Ramus 2. Sacroiliac Joint Ablation - Lateral Branches of bilateral S1, S2, S3 DATE OF PROCEDURE: January 25, 2020 ANESTHESIA: Local COMPLICATIONS: None CONSENT: A full description of the procedure was provided including benefits as well as possible complications. All questions were answered and informed consent was given and signed. ASA guidelines for fasting were verified prior to s edation. PROCEDURE IN DETAIL The patient was brought into the fluoroscopy suite and carefully assisted into the prone position on the fluoroscopy table and allowed to adjust to a position of comfort. A grounding pad was placed on the right thigh. The low back and buttocks were widely prepped with a chloraprep solution, allowed to air dry and draped in standard sterile surgical fashion. Local anesthesia was provided by 12 mL of 1 % lidocaine delivered with a 25 g needle. PROCEDURE #1: Radiofrequency Ablation of Dorsal Ramus of bilateral L5. A 17g 100mm radiofrequency introducer needle was placed to the planned anatomic target, guided with intermittent fluoroscopy with a perpendicular approach, to terminally place at the bilateral sacral ala. The stylets were removed and the radiofrequency probes with a 4mm active tip were then inserted. Needle tip position of the probes were verified in the AP, oblique, and lateral views. At each site, the medial branch nerve was stimulated at 2Hz to a maximum of 1- 2volts determined to finalize safe needle and electrode placement. The patient was awake and responsive during this portion of the procedure. Each target was anesthetized with 2mL of 2 % Sensorcaine anesthesia for lesioning and then each target was lesioned at 80 degrees Celsius for 2 minutes and 30 seconds. Tissue impedences were noted to be between 250 and 500 Ohms. PROCEDURE #2: Radiofrequency Ablation of bilateral S1, S2, S3 Lateral Branches Using the AP fluoroscopic view for visualization of the lateral PSFA as defined by the pre-placed 27-gauge Quincke needles, appropriate skin starting positions were defined. Using the PSFA as a "clock-face", the positions were: S1; bilateral = 1 and 5 oclock S2; bilateral = 1 and 5 oclock S3; bilateral = 3 oclock Using fluoroscopic guidance, a 17g introducer needle was inserted sequentially onto the target positions described above until the introducer tip touched the bony surface of the sacrum. The stylet was withdrawn from the introducer and the radiofrequency probe with a 4 mm active tip was fully inserted into the introducer. A lateral view was obtained for standard reference. At each of the targets, needle placement was verified with the use of multi-planar fluoroscopy. The needle tip position was approximately 7 - 10mm lateral to the PSFA as determined by using an Epsilon ruler. At each site, the lateral branch nerve was stimulated at 2 Hz to a maximum of 1- 2 volts determined to finalize safe needle and electrode placement. The patient was awake and responsive during this portion of the procedure. Each target was anesthetized with 2 mL of 2 % Sensorcaine anesthesia for lesioning and then each target was lesioned at 80 degrees Celsius for 2 minutes and 30 seconds. Tissue impedences were noted to be between 250- 500 Ohms. At the conclusion of the lesioning the needles were removed and bandages placed over the needle placement sites and the patient returned to the supine position on a stretcher and transp orted to the recovery room without hemodynamic, neurologic, or allergic reactions. Fluoroscopic images were printed for hard copy recording and digitally archived. FLUOROSCOPIC INTERPRETATION: Appropriate epidurogram obtained. Appropriate lesioning of the 10 targets noted. POST PROCEDURE EVALUATION: The patient was comfortable in the recovery room. The patient is aware that pain may worsen before remitting and 4 6 weeks may be required prior to the onset of pain relief. IMPRESSION: 1. Technically successful sacral lateral branch, lumbar dorsal ramus for denervation from L5-S3 on the bilateral without complication. 2. RTC in 2 weeks. 3. Estimated Blood Loss: None 4. Fluoroscopy time: 30 seconds
== END ==
LOC: RAD 09:40
PROVIDERS: ATTEND Family Medicine
DX: M47.817 Spondylosis without myelopathy or radiculopathy, lumbosacral region (principal)
CPT/HCPCS: 64625; 64640 ×3; J3490 ×2